=== PATIENT | female | born 1975 | race Two or more races ===

== ENCOUNTER 2024-01-04 20:01 | Emergency (ER) | payer MEDICAID ==
[~2024-01-04] VITALS: Ht 157.5 cm; Wt 65.0 kg
[2024-01-04 20:27] VITALS: TEMP 98.7; O2SAT 99
[2024-01-04 23:02] VITALS: BP 133/76; PULSE 111; RESP 20
[2024-01-04] MEDS: HYDROCODONE/ACETAMINOPHEN 5/325MG TABLET PO ONE (23:02)
[2024-01-04] MEDS ORDERED: NAPR-1176 MT (23:25)
== END 2024-01-04 23:44 | disposition home or self-care (01) ==
LOC: ER 20:01
DX: S06.0X0A Concussion without loss of consciousness, initial encounter (principal); F41.9 Anxiety disorder, unspecified; G43.909 Migraine, unspecified, not intractable, without status migrainosus; Y08.89XA Assault by other specified means, initial encounter; Y93.89 Activity, other specified; Y92.89 Other specified places as the place of occurrence of the external cause; Y99.8 Other external cause status
CPT/HCPCS: 70486; 71101; 73030; 99284